=== PATIENT | female | born 1945 | race Caucasian/White ===

== ENCOUNTER 2018-10-18 09:56 | Outpatient (CLI) | payer MEDICARE, MEDICAID | END 2018-10-18 09:57 | disposition home or self-care (01) | LOC: BICMAMMO 09:56 | PROVIDERS: ATTEND Family Medicine | DX: Z12.31 Encounter for screening mammogram for malignant neoplasm of breast (principal); R92.1 Mammographic calcification found on diagnostic imaging of breast | CPT/HCPCS: 77063; 77067 ==

== ENCOUNTER 2020-10-16 08:08 | Outpatient (CLI) | payer MEDICARE, MEDICAID ==
--- NOTE | 2020-10-16 08:47 | BD ---
DEXA bone density scan: 10/16/2020 COMPARISON: 07/14/2017. HISTORY: DEXA bone density scan, postmenopausal female undergoing screening for osteoporosis. FINDINGS: Lumbar Spine: BMD (g/cm2) L1 0.990 T-Score: 0.0 L2 1.068 T-Score: 0.4 L3 1.347 T-Score: 2.4 L4 0.935 T-Score: -1.1 L1-L4 1.069 T-Score: 0.2 Previous T-scores L1: -0.8 L2: -0.6 L3: -0.8 L4: -1.2 Total: -1.0 Femoral Neck: 0.567 T-Score: -2.5 Total Femur: 0.682 T-Score: -2.1 Previous T-Scores: Femoral neck: -2.2 Total Femur: -2.0 When compared to the prior examination, bone mineral density has decreased by 2.6% within the proxima l femur and has increased by 13.8% within the lumbar spine. This increase in bone mineral density within the lumbar spine is felt to be artifical in nature, likely associated with degenerative change . The FRAX-WHO fracture risk assessment tool is not reported as some T-scores are at or below -2.5. IMPRESSION: Femoral neck osteoporosis. Bone mineral density has worsened. Transcribed Date/Time: 10/16/2020 9:15 AM
--- NOTE | 2020-10-16 16:33 | MMO ---
Bilateral MAMMO Bilat Screen [facility]. CLINICAL HISTORY: Patient is 75 years old and is seen for screening. The patient has no family history of breast cancer. The patient has no personal history of cancer. VIEWS: The views performed were: bilateral craniocaudal with tomosynthesis; bilateral mediolateral oblique with tomosynthesis; and left mediolateral oblique. FILMS COMPARED: The present examination has been compared to prior imaging studies performed at [facility] on 06/25/2016 and 10/18/2018. This study has been interpreted with the assistance of computer-aided detection. MAMMOGRAM FINDINGS: The breasts are extremely dense, which may lower the sensitivity of mammography. There are tiny new calcs in the posterior right mid breast on MLO view. In the left breast, there are no suspicious masses, calcifications or areas of architectural distortion. IMPRESSION: FINDING IN THE RIGHT BREAST REQUIRES ADDITIONAL EVALUATION. ADDITIONAL PROJECTIONS (RIGHT MEDIOLATERAL OBLIQUE SPOT COMPRESSION MAGNIFICATION; RIGHT MEDIOLATERAL; RIGHT EXAGGERATED CRANIOCAUDAL; AND RIGHT EXAGGERATED CRANIOCAUDAL SPOT COMPRESSION MAGNIFICATION) ARE RECOMMENDED. THE RESULTS OF THIS EXAM WERE SENT TO THE PATIENT. ACR BI-RADS Category 0 - Incomplete: Need additional imaging evaluation. [facility] will notify the patient of the need for additional imaging services. MAMMOGRAPHY NOTE: 1. A negative mammogram report should not delay a biopsy if a dominant of clinically suspicious mass is present. 2. Approximately 10% to 15% of breast cancers are not detected by mammography. 3. Adenosis and dense breasts may obscure an underlying neoplasm. Reported by: ERNIE BARRAZA MD Electonically Signed: [id number]
== END 2020-10-16 08:09 | disposition home or self-care (01) ==
LOC: BICMAMMO 08:08
PROVIDERS: ATTEND Family Medicine
DX: Z12.31 Encounter for screening mammogram for malignant neoplasm of breast (principal); M81.6 Localized osteoporosis [Lequesne]; R92.1 Mammographic calcification found on diagnostic imaging of breast
CPT/HCPCS: 77063; 77067; 77080

== ENCOUNTER 2020-10-30 08:22 | Outpatient (CLI) | payer MEDICARE, MEDICAID ==
--- NOTE | 2020-10-30 08:56 | MMO ---
Right Breast MAMMO Unilat Diag [facility]. CLINICAL HISTORY: Patient is 75 years old and is seen for diagnostic exam. The patient has no family history of breast cancer. The patient has no personal history of cancer. VIEWS: The views performed were: right mediolateral oblique spot compression magnification; right mediolateral spot compression magnification; right mediolateral with tomosynthesis; right exaggerated craniocaudal with tomosynthesis; and cleavage view. FILMS COMPARED: The present examination has been compared to prior imaging studies performed at [facility] on 06/25/2016, 10/18/2018 and 10/16/2020. This study has been interpreted with the assistance of computer-aided detection. MAMMOGRAM FINDINGS: The breast is extremely dense, which may lower the sensitivity of mammography. There are calcifications with grouped or clustered distribution seen in the posterior lower-outer region of the right breast. IMPRESSION: CALCIFICATIONS IN THE RIGHT BREAST ARE PROBABLY BENIGN. FOLLOW-UP IN 6 MONTHS IS RECOMMENDED. THE RESULTS OF THIS EXAM WERE SENT TO THE PATIENT. ACR BI-RADS Category 3 - Probably benign finding - short interval follow-up suggested. [facility] will notify the patient of the need for additional imaging services. MAMMOGRAPHY NOTE: 1. A negative mammogram report should not delay a biopsy if a dominant of clinically suspicious mass is present. 2. Approximately 10% to 15% of breast cancers are not detected by mammography. 3. Adenosis and dense breasts may obscure an underlying neoplasm. Reported by: HARDEEP NAILS MD Electonically Signed: [id number]
== END 2020-10-30 08:23 | disposition home or self-care (01) ==
LOC: BICMAMMO 08:22
PROVIDERS: ATTEND Family Medicine
DX: R92.2 Inconclusive mammogram (principal); R92.1 Mammographic calcification found on diagnostic imaging of breast
CPT/HCPCS: 77065; G0279

== ENCOUNTER 2021-05-01 13:41 | Outpatient (CLI) | payer MEDICARE, MEDICAID | END 2021-05-01 13:42 | disposition home or self-care (01) | LOC: BICMAMMO 13:41 | PROVIDERS: ATTEND Family Medicine | DX: R92.1 Mammographic calcification found on diagnostic imaging of breast (principal) | CPT/HCPCS: 77065; G0279 ==

== ENCOUNTER 2021-11-05 09:13 | Outpatient (CLI) | payer MEDICARE, MEDICAID | END 2021-11-05 09:14 | disposition home or self-care (01) | LOC: BICMAMMO 09:13 | PROVIDERS: ATTEND Family Medicine | DX: N63.10 Unspecified lump in the right breast, unspecified quadrant (principal); R92.8 Other abnormal and inconclusive findings on diagnostic imaging of breast | CPT/HCPCS: 77066; G0279 ==

== ENCOUNTER 2023-08-19 09:27 | Outpatient (CLI) | payer OTHER, MEDICAID | END 2023-08-19 09:28 | disposition home or self-care (01) | LOC: BICMAMMO 09:27 | PROVIDERS: ATTEND Family Medicine | DX: Z12.31 Encounter for screening mammogram for malignant neoplasm of breast (principal); Z80.3 Family history of malignant neoplasm of breast | CPT/HCPCS: 77063; 77067 ==

== ENCOUNTER 2024-09-18 09:26 | Inpatient (IN) | payer OTHER, MEDICAID ==
[2024-09-18] MEDS ORDERED: Morphine 2 MG/ML VIAL ONE ×2 (09:46→10:32)
[2024-09-18] MEDS ORDERED: Ondansetron PF 4 MG/2 ML Vial ONE (09:46)
[2024-09-18 09:47] LABS: #Basophils 0.03 10x3/uL (0.0-0.2); #Eosinophils Less than 0.03 10x3/uL (0.0-0.7); %Basophils 0.4 % (0.0-1.0); %Lymphocytes 14.9 % (21.0-51.0); %Neutrophils 77.3 % (42.0-75.0); Hemoglobin 11.2 g/dL (12.0-16.0); Mean Corpuscular HGB CONC 33.9 g/dL (32.0-36.0); Mean Corpuscular Hemoglobin 27.7 pg (27.0-31.0); Mean Corpuscular Volume 81.7 fL (78.0-98.0); Mean Platelet Volume 9.2 fL (7.4-10.4); Platelet Count 456 10x3/uL (130-400); RBC Distribution Width 13.5 % (11.5-14.5); Red Blood Cell (RBC) Count 4.04 mill/uL (4.20-5.40)
[2024-09-18 09:57] LABS: ALT (SGPT) 14 U/L (8-55); AST (SGOT) 28 U/L (5-34); Albumin 4.1 g/dL (3.4-4.8); Anion Gap 23 mmol/L (10-20); BUN (Urea Nitrogen) 32 mg/dL (9.8-20.1); Bilirubin, Total 0.8 mg/dL (0.2-1.2); Calc. Creatinine Clearance 0 mL/min (70-130); Calcium 10.4 mg/dL (7.8-10.44); Carbon Dioxide 28 mmol/L (23-31); Chloride 86 mmol/L (98-107); Estimated GFR 41; Globulin 4.3 g/dL (2.4-3.5); Glucose 149 mg/dL (83-110); Lipase 23 U/L (8-78); Protein, Total 8.4 g/dL (5.8-8.1); Sodium 134 mmol/L (136-145)
[2024-09-18 10:27] LABS: Troponin I 0.053 ng/mL (< 0.028)
[2024-09-18 11:20] LABS: Alkaline Phosphatase 102 U/L (40-110)
[2024-09-18 11:45] LABS: Bilirubin Negative (Negative); Blood, Urine Small (Negative); Glucose, Urine (Dipstick) Negative (Negative); Ketone, Urine Trace mg/dL (Negative); Leukocyte Negative (Negative); Nitrite Negative (Negative); Protein, Urine (Dipstick) 100 mg/dL (Neg-Trace); Urobilinogen 0.2 mg/dL (Less than 2)
[2024-09-18 12:01] LABS: Bacteria/HPF 1+ HPF (None Seen); CAUTI Indications for Culture Pelvic or flank pain; Squamous Epithelial 0-3 HPF (0-3)
[2024-09-18 12:02] LABS: Clarity Cloudy (Clear); Urine Culture Reflex No No
[2024-09-18] MEDS ORDERED: LORazepam 2 MG/ML SYR.(CARPUJECT) ONE (12:05)
[2024-09-18] MEDS ORDERED: Iopamidol-370 76% 500 ML MDV (1 ML CHARGE) ONE (13:16)
[2024-09-18] MEDS ORDERED: Aspirin Chewable 81 MG TAB ONE (14:05)
[2024-09-18] MEDS ORDERED: Ondansetron PF 4 MG/2 ML Vial IVP PRN (14:06)
[2024-09-18] MEDS ORDERED: Sodium Chloride 0.9% 100 ML ONE (14:06)
[2024-09-18] MEDS ORDERED: cefTRIAXone (ROCEPHIN) 1 GM VIAL ONE (14:06)
[2024-09-18] MEDS ORDERED: Dextrose 5% in Water 1,000 ML IV PRN (14:10)
[2024-09-18] MEDS ORDERED: Insulin Regular, Human 100 UNIT/ML 10 ML VIAL SC PRN (14:10)
[2024-09-18] MEDS ORDERED: Dextrose 50% Abboject 50 ML SYRINGE SLOW IVP PRN (14:10)
[2024-09-18] MEDS ORDERED: Glucagon 1 MG/ML KIT IM PRN (14:10)
[2024-09-18] MEDS ORDERED: Insulin Lispro 100 UNIT/ML 10 ML VIAL SC PRN (14:10)
[2024-09-18 15:00] LABS: Troponin I 0.059 ng/mL (< 0.028)
[2024-09-18] MEDS ORDERED: Potassium Chloride 20 MEQ (100 mL) BAG ONE (16:33)
[2024-09-18] MEDS: hydrALAZINE 20 MG/ML VIAL SLOW IVP PRN (18:01)
[2024-09-18] MEDS: Potassium Chloride 20 MEQ in Premix 1 BAG IVPB SCH (18:11)
[2024-09-18] MEDS: Sodium Chloride 0.9% 1,000 ML IV SCH (18:11)
[2024-09-18] MEDS: Morphine 2 MG/ML VIAL SLOW IVP PRN (18:48)
[2024-09-18 18:55] VITALS: BMI 30.2
[2024-09-18] MEDS: Famotidine/PF 20 mg/2ml Vial SLOW IVP SCH (20:16)
[2024-09-18] MEDS: Lorazepam 1 MG TAB PO SCH (20:16)
[2024-09-18] MEDS: Carvedilol 25 MG TAB PO SCH (20:16)
[2024-09-18] MEDS: hydrALAZINE 25 MG TAB PO SCH (20:16)
[2024-09-18] MEDS: Rosuvastatin 5 MG TAB PO SCH (20:17)
[2024-09-18] MEDS: diphenhydrAMINE 25 MG CAP PO PRN (20:17)
[2024-09-19 04:32] LABS: #Basophils 0.05 10x3/uL (0.0-0.2); #Eosinophils Less than 0.03 10x3/uL (0.0-0.7); %Basophils 0.7 % (0.0-1.0); %Eosinophils 0.1 % (0.0-10.0); %Lymphocytes 18.8 % (21.0-51.0); %Monocytes 10.1 % (0.0-10.0); Hematocrit 31.2 % (36.0-47.0); Hemoglobin 9.9 g/dL (12.0-16.0); Mean Corpuscular HGB CONC 31.7 g/dL (32.0-36.0); Mean Corpuscular Hemoglobin 27.1 pg (27.0-31.0); Mean Corpuscular Volume 85.5 fL (78.0-98.0); Mean Platelet Volume 9.9 fL (7.4-10.4); Platelet Count 404 10x3/uL (130-400); RBC Distribution Width 13.8 % (11.5-14.5); Red Blood Cell (RBC) Count 3.65 mill/uL (4.20-5.40)
[2024-09-19 05:03] LABS: ALT (SGPT) 12 U/L (8-55); AST (SGOT) 26 U/L (5-34); Albumin 3.5 g/dL (3.4-4.8); Alkaline Phosphatase 83 U/L (40-110); Anion Gap 16 mmol/L (10-20); BUN (Urea Nitrogen) 30 mg/dL (9.8-20.1); Bilirubin, Total 0.5 mg/dL (0.2-1.2); Calc. Creatinine Clearance 45 mL/min (70-130); Calcium 9.2 mg/dL (7.8-10.44); Carbon Dioxide 25 mmol/L (23-31); Chloride 96 mmol/L (98-107); Estimated GFR 50; Globulin 3.5 g/dL (2.4-3.5); Glucose 129 mg/dL (83-110); Magnesium 1.8 mg/dL (1.6-2.6); Potassium 2.9 mmol/L (3.5-5.1); Sodium 134 mmol/L (136-145)
[2024-09-19] MEDS: Aspirin 325 mg Enteric Coated Tablet PO SCH (08:13)
[2024-09-19] MEDS: Potassium Chloride 20 MEQ TAB PO SCH (08:13)
[2024-09-19] MEDS: Enoxaparin 40 MG (0.4 mL) SYRINGE SC SCH (08:13)
[2024-09-19] MEDS ORDERED: Furosemide 20 MG TAB PO SCH (09:00)
[2024-09-19] MEDS ORDERED: Lisinopril 20 MG TAB PO SCH (09:00)
[2024-09-19] MEDS: Magnesium 2 GM/50 ML(in water) 2 GM in Premix 1 BAG IVPB SCH ×2 (12:25→12:27)
[2024-09-19] MEDS: diphenhydrAMINE 50 MG/ML VIAL IVP SCH (12:26)
[2024-09-19] MEDS: cefTRIAXone\\ROCEPHIN 1 GM in Sodium Chloride 0.9% 100 ML IVPB SCH (14:45)
[2024-09-20 05:09] LABS: Iron 28 ug/dL (50-170); Iron Binding Capacity, Total 313 mcg/dL (265-497)
[2024-09-20 05:20] LABS: Ferritin 64.77 ng/mL (10-291)
[2024-09-20 05:24] LABS: HBSAB Concentration Less than 8.00 mIU/mL; HBsAg Index 0.29 S/CO (0-0.99); Hep B Core Total Ab NONREACTIVE (NonReactive); Hep B Core Total Index 0.18 S/CO (0-0.79); Hep B Surf AB NONREACTIVE (NonReactive); Hep B Surf Ag NONREACTIVE S/CO (NonReactive); Hep C IgG Ab NONREACTIVE S/CO (NonReactive); Hep C Index 0.11 S/CO (0-0.79)
[2024-09-20 08:29] VITALS: TEMP 98.5
[2024-09-20] MEDS ORDERED: FLU (Fluad Triv) TS24-25 (65UP)/MF59C/PF 45 MCG/0.5 ML Syringe IM ONE (09:00)
[2024-09-20 10:28] LABS: Anion Gap 15 mmol/L (10-20); BUN (Urea Nitrogen) 26 mg/dL (9.8-20.1); Calc. Creatinine Clearance 48 mL/min (70-130); Calcium 9.1 mg/dL (7.8-10.44); Carbon Dioxide 26 mmol/L (23-31); Chloride 103 mmol/L (98-107); Estimated GFR 54; Glucose 142 mg/dL (83-110); Potassium 3.6 mmol/L (3.5-5.1); Sodium 140 mmol/L (136-145)
[2024-09-20] MEDS: cloNIDine 0.1 MG TAB PO PRN (13:46)
[2024-09-20] MEDS: diphenhydrAMINE 50 MG/ML VIAL IVP SCH (14:56)
[2024-09-20 17:15] VITALS: BP 216/86
[2024-09-21 05:17] LABS: Hepatitis A Total ABS Negative (Negative)
[2024-09-21 12:46] LABS: EliA Vaculitis New Method **** NEW METHOD ****; Mitochondrial Ab 0.7 U/mL (<4 Negative)
[2024-09-22 08:18] LABS: Alpha-1-Antitrypsin 143 mg/dL (101-187)
[2024-09-22 12:42] LABS: Smooth Muscle Total ABS 22 Units (0-19)
== END 2024-09-20 18:39 | disposition home or self-care (01) | DRG 392 ==
LOC: SUATTDRO 09:26 → ERS 09:26 → ERHOLD 14:05 → 2NO 17:27 → OBSVTOIN 09-19 13:17
PROVIDERS: ADMIT Internal Medicine; ATTEND Internal Medicine
DX: A09 Infectious gastroenteritis and colitis, unspecified (principal); I24.89 Other forms of acute ischemic heart disease; N39.0 Urinary tract infection, site not specified; K86.2 Cyst of pancreas; K80.20 Calculus of gallbladder without cholecystitis without obstruction; E87.6 Hypokalemia; N18.30 Chronic kidney disease, stage 3 unspecified; K43.9 Ventral hernia without obstruction or gangrene; E86.0 Dehydration; E78.5 Hyperlipidemia, unspecified; E11.22 Type 2 diabetes mellitus with diabetic chronic kidney disease; I12.9 Hypertensive chronic kidney disease with stage 1 through stage 4 chronic kidney disease, or unspecified chronic kidney disease
CPT/HCPCS: 36415; 36416; 51702; 71045; 74177; 76705; 80048; 80053; 81001; 82103; 82728; 83516; 83540; 83550; 83690; 83735; 84145; 84484; 85025; 86015; 86704; 86706; 86708; 86803; 87086; 87340; 93005; 94760; 96361; 96365; 96372; 96375; 96376; G0378; J0360; J0696; J1200; J1650; J2060; J2272; J2405; J3475; J3480; J3490; J7030; Q9967

== ENCOUNTER 2024-10-17 13:50 | Inpatient (IN) | payer OTHER, MEDICAID ==
[2024-10-17 14:21] LABS: #Basophils Less than 0.03 10x3/uL (0.0-0.2); %Basophils 0.2 % (0.0-1.0); %Eosinophils 0.4 % (0.0-10.0); %Lymphocytes 10.7 % (21.0-51.0); %Monocytes 7.1 % (0.0-10.0); %Neutrophils 81.1 % (42.0-75.0); Hematocrit 36.1 % (36.0-47.0); Hemoglobin 12.1 g/dL (12.0-16.0); Mean Corpuscular HGB CONC 33.5 g/dL (32.0-36.0); Mean Corpuscular Volume 80.6 fL (78.0-98.0); Mean Platelet Volume 10.7 fL (7.4-10.4); Platelet Count 260 10x3/uL (130-400); RBC Distribution Width 14.9 % (11.5-14.5); Red Blood Cell (RBC) Count 4.48 mill/uL (4.20-5.40)
[2024-10-17 14:46] LABS: Troponin I 0.069 ng/mL (< 0.028)
[2024-10-17 14:50] LABS: ALT (SGPT) 5 U/L (8-55); AST (SGOT) 17 U/L (5-34); Albumin 3.4 g/dL (3.4-4.8); Alkaline Phosphatase 89 U/L (40-110); Anion Gap 19 mmol/L (10-20); BUN (Urea Nitrogen) 38 mg/dL (9.8-20.1); Bilirubin, Total 0.7 mg/dL (0.2-1.2); Calc. Creatinine Clearance 0 mL/min (70-130); Calcium 8.3 mg/dL (7.8-10.44); Carbon Dioxide 36 mmol/L (23-31); Chloride 76 mmol/L (98-107); Estimated GFR 18; Globulin 3.5 g/dL (2.4-3.5); Glucose 113 mg/dL (83-110); Potassium 2.6 mmol/L (3.5-5.1); Protein, Total 6.9 g/dL (5.8-8.1); Sodium 128 mmol/L (136-145)
[2024-10-17] MEDS ORDERED: HYDROcodone/Acetaminophen 5/325 mg Tablet ONE (15:09)
[2024-10-17] MEDS ORDERED: Potassium Chloride 20 MEQ (100 mL) BAG ONE (17:40)
[2024-10-17 19:55] VITALS: BMI 24.7
[2024-10-17] MEDS ORDERED: Acetaminophen 325 MG TAB PO PRN ×2 (20:00→22:29)
[2024-10-17] MEDS ORDERED: Ondansetron PF 4 MG/2 ML Vial IVP PRN ×2 (20:00→22:29)
[2024-10-17] MEDS ORDERED: Ondansetron ODT 4 MG TAB SL PRN (20:00)
[2024-10-17] MEDS: Morphine 2 MG/ML VIAL SLOW IVP PRN (20:21)
[2024-10-17] MEDS ORDERED: Acetaminophen 650 MG Suppository PR PRN (22:29)
[2024-10-17] MEDS ORDERED: Senokot S 8.6-50 MG TAB PO PRN (22:29)
[2024-10-17] MEDS ORDERED: Dextrose 50% Abboject 50 ML SYRINGE SLOW IVP PRN (22:29)
[2024-10-17] MEDS ORDERED: Dextrose 5% in Water 1,000 ML IV PRN (22:29)
[2024-10-17] MEDS ORDERED: Ondansetron ODT 4 MG TAB PO PRN (22:29)
[2024-10-17] MEDS ORDERED: Calcium Carbonate 500 MG ChewTAB PO PRN (22:29)
[2024-10-17] MEDS ORDERED: Glucagon 1 MG/ML KIT IM PRN (22:29)
[2024-10-18 00:20] LABS: Magnesium 0.9 mg/dL (1.6-2.6)
[2024-10-18] MEDS: Magnesium Sulfate In Water 4 GM in Premix 1 BAG IVPB SCH (01:06)
[2024-10-18] MEDS: Potassium Chloride 20 MEQ TAB PO SCH (01:06)
[2024-10-18] MEDS: NS 0.9% w/ 20 MEQ KCL 1,000 ML/1,000 ML BAG IV SCH (01:07)
[2024-10-18] MEDS: HYDROcodone/Acetaminophen 7.5/325 mg Tablet PO PRN (01:14)
[2024-10-18 04:49] LABS: #Basophils Less than 0.03 10x3/uL (0.0-0.2); #Eosinophils Less than 0.03 10x3/uL (0.0-0.7); %Basophils 0.3 % (0.0-1.0); %Eosinophils 0.3 % (0.0-10.0); %Lymphocytes 15.5 % (21.0-51.0); %Monocytes 5.3 % (0.0-10.0); %Neutrophils 78.3 % (42.0-75.0); Hematocrit 35.8 % (36.0-47.0); Hemoglobin 11.7 g/dL (12.0-16.0); Mean Corpuscular HGB CONC 32.7 g/dL (32.0-36.0); Mean Corpuscular Hemoglobin 27.6 pg (27.0-31.0); Mean Corpuscular Volume 84.4 fL (78.0-98.0); Mean Platelet Volume 10.1 fL (7.4-10.4); Platelet Count 269 10x3/uL (130-400); Red Blood Cell (RBC) Count 4.24 mill/uL (4.20-5.40)
[2024-10-18 05:18] LABS: ALT (SGPT) 6 U/L (8-55); AST (SGOT) 16 U/L (5-34); Albumin 3.2 g/dL (3.4-4.8); Alkaline Phosphatase 92 U/L (40-110); Anion Gap 22 mmol/L (10-20); BUN (Urea Nitrogen) 35 mg/dL (9.8-20.1); Bilirubin, Total 0.5 mg/dL (0.2-1.2); Calc. Creatinine Clearance 20 mL/min (70-130); Calcium 8.4 mg/dL (7.8-10.44); Carbon Dioxide 31 mmol/L (23-31); Chloride 84 mmol/L (98-107); Estimated GFR 24; Globulin 3.6 g/dL (2.4-3.5); Glucose 88 mg/dL (83-110); Magnesium 2.6 mg/dL (1.6-2.6); Protein, Total 6.8 g/dL (5.8-8.1); Sodium 133 mmol/L (136-145)
[2024-10-18] MEDS: Gabapentin 300 MG CAP PO SCH (10:11)
[2024-10-18] MEDS: Pantoprazole DR 40 MG TAB PO SCH (10:11)
[2024-10-18] MEDS: Aspirin 325 mg Enteric Coated Tablet PO SCH (10:11)
[2024-10-18] MEDS: Sodium Chloride 0.9% 1,000 ML IV SCH (11:31)
[2024-10-18] MEDS: Insulin Lispro 100 UNIT/ML 10 ML VIAL SC PRN ×2 (18:44→22:30)
[2024-10-19 05:48] LABS: Anion Gap 17 mmol/L (10-20); BUN (Urea Nitrogen) 32 mg/dL (9.8-20.1); Calc. Creatinine Clearance 26 mL/min (70-130); Calcium 8.1 mg/dL (7.8-10.44); Carbon Dioxide 32 mmol/L (23-31); Chloride 89 mmol/L (98-107); Estimated GFR 32; Glucose 156 mg/dL (83-110); Potassium 3.6 mmol/L (3.5-5.1); Sodium 134 mmol/L (136-145)
[2024-10-19] MEDS: Saxagliptin 2.5 MG TAB PO SCH (11:56)
[2024-10-19] MEDS: Alogliptin 25 MG TAB PO SCH (12:17)
[2024-10-19] MEDS: glipiZIDE 5 MG TAB PO SCH (20:17)
[2024-10-19] MEDS: Atorvastatin Calcium 10 MG TAB PO SCH (20:17)
[2024-10-19] MEDS: Carvedilol 25 MG TAB PO SCH (20:18)
[2024-10-20 04:54] LABS: Hematocrit 30.7 % (36.0-47.0); Hemoglobin 10.1 g/dL (12.0-16.0); Mean Corpuscular HGB CONC 32.9 g/dL (32.0-36.0); Mean Corpuscular Hemoglobin 28.1 pg (27.0-31.0); Mean Corpuscular Volume 85.5 fL (78.0-98.0); Mean Platelet Volume 10.3 fL (7.4-10.4); Platelet Count 228 10x3/uL (130-400); Red Blood Cell (RBC) Count 3.59 mill/uL (4.20-5.40)
[2024-10-20 05:13] LABS: Anion Gap 11 mmol/L (10-20); BUN (Urea Nitrogen) 24 mg/dL (9.8-20.1); Calc. Creatinine Clearance 39 mL/min (70-130); Calcium 8.1 mg/dL (7.8-10.44); Carbon Dioxide 32 mmol/L (23-31); Chloride 93 mmol/L (98-107); Estimated GFR 53; Glucose 202 mg/dL (83-110); Magnesium 1.7 mg/dL (1.6-2.6); Potassium 3.4 mmol/L (3.5-5.1); Sodium 133 mmol/L (136-145)
[2024-10-20] MEDS: Saxagliptin 2.5 MG TAB PO SCH (09:45)
[2024-10-20] MEDS: Potassium Chloride 20 MEQ TAB PO SCH (09:46)
[2024-10-20] MEDS: metFORMIN 500 MG TAB PO SCH (20:37)
[2024-10-21 04:07] LABS: Hematocrit 30.7 % (36.0-47.0); Hemoglobin 9.8 g/dL (12.0-16.0); Mean Corpuscular HGB CONC 31.9 g/dL (32.0-36.0); Mean Corpuscular Hemoglobin 27.6 pg (27.0-31.0); Mean Corpuscular Volume 86.5 fL (78.0-98.0); Mean Platelet Volume 10.4 fL (7.4-10.4); Platelet Count 222 10x3/uL (130-400); RBC Distribution Width 14.8 % (11.5-14.5); Red Blood Cell (RBC) Count 3.55 mill/uL (4.20-5.40)
[2024-10-21 04:44] LABS: Anion Gap 14 mmol/L (10-20); BUN (Urea Nitrogen) 20 mg/dL (9.8-20.1); Calc. Creatinine Clearance 43 mL/min (70-130); Calcium 8.5 mg/dL (7.8-10.44); Carbon Dioxide 28 mmol/L (23-31); Chloride 95 mmol/L (98-107); Estimated GFR 58; Glucose 197 mg/dL (83-110); Magnesium 1.6 mg/dL (1.6-2.6); Potassium 3.7 mmol/L (3.5-5.1); Sodium 133 mmol/L (136-145)
[2024-10-21] MEDS: Pioglitazone HCl 15 MG TAB PO SCH (10:02)
[2024-10-21] MEDS: hydrALAZINE 25 MG TAB PO SCH (15:37)
[2024-10-21] MEDS: hydrALAZINE 20 MG/ML VIAL SLOW IVP PRN (17:06)
[2024-10-21] MEDS: metFORMIN 500 MG TAB PO SCH (17:11)
[2024-10-21] MEDS: FLU (Fluad Triv) TS24-25 (65UP)/MF59C/PF 45 MCG/0.5 ML Syringe IM ONE (21:04)
[2024-10-22] MEDS: Furosemide 40 MG TAB PO SCH (08:19)
[2024-10-22] MEDS ORDERED: Zolpidem Tartrate 5 MG TAB PO PRN (09:20)
[2024-10-23 04:47] LABS: #Basophils Less than 0.03 10x3/uL (0.0-0.2); %Basophils 0.5 % (0.0-1.0); %Eosinophils 4.1 % (0.0-10.0); %Lymphocytes 29.8 % (21.0-51.0); %Monocytes 6.6 % (0.0-10.0); Hematocrit 31.8 % (36.0-47.0); Hemoglobin 10.3 g/dL (12.0-16.0); Mean Corpuscular HGB CONC 32.4 g/dL (32.0-36.0); Mean Corpuscular Hemoglobin 27.5 pg (27.0-31.0); Mean Platelet Volume 10.6 fL (7.4-10.4); Platelet Count 247 10x3/uL (130-400); RBC Distribution Width 14.9 % (11.5-14.5); Red Blood Cell (RBC) Count 3.74 mill/uL (4.20-5.40)
[2024-10-23 04:51] LABS: Anion Gap 15 mmol/L (10-20); BUN (Urea Nitrogen) 23 mg/dL (9.8-20.1); Calc. Creatinine Clearance 40 mL/min (70-130); Calcium 9.4 mg/dL (7.8-10.44); Carbon Dioxide 30 mmol/L (23-31); Chloride 94 mmol/L (98-107); Estimated GFR 49; Glucose 117 mg/dL (83-110); Potassium 3.8 mmol/L (3.5-5.1); Sodium 135 mmol/L (136-145)
[2024-10-23 17:13] VITALS: BP 147/65; TEMP 97.2
== END 2024-10-23 18:49 | disposition home health service (06) | DRG 184 ==
LOC: ERS 13:50 → ERHOLD 18:11 → 2NO 19:34
PROVIDERS: ADMIT Family Medicine; ATTEND Internal Medicine
DX: S22.43XA Multiple fractures of ribs, bilateral, initial encounter for closed fracture (principal); E87.1 Hypo-osmolality and hyponatremia; N17.9 Acute kidney failure, unspecified; E87.6 Hypokalemia; E11.22 Type 2 diabetes mellitus with diabetic chronic kidney disease; I12.9 Hypertensive chronic kidney disease with stage 1 through stage 4 chronic kidney disease, or unspecified chronic kidney disease; Z95.0 Presence of cardiac pacemaker; Z88.5 Allergy status to narcotic agent; Z86.73 Personal history of transient ischemic attack (TIA), and cerebral infarction without residual deficits; I25.10 Atherosclerotic heart disease of native coronary artery without angina pectoris; D64.9 Anemia, unspecified; E78.5 Hyperlipidemia, unspecified; N18.30 Chronic kidney disease, stage 3 unspecified; R53.81 Other malaise; X58.XXXA Exposure to other specified factors, initial encounter
CPT/HCPCS: 36415; 36416; 70450; 71250; 80048; 80053; 83735; 84484; 85025; 85027; 93005; 93306; 94760; 96374; J0360; J1815; J2272; J3475; J3480; J7030

== ENCOUNTER 2025-06-25 15:07 | Inpatient (IN) | payer OTHER, MEDICAID ==
[2025-06-25 16:27] LABS: #Basophils Less than 0.03 10x3/uL (0.0-0.2); #Eosinophils 0.07 10x3/uL (0.0-0.7); #Monocytes 0.28 10x3/uL (0.11-0.59); #Neutrophils 3.45 10x3/uL (1.40-6.50); %Basophils 0.4 % (0.0-1.0); %Eosinophils 1.5 % (0.0-10.0); %Lymphocytes 15.9 % (21.0-51.0); %Monocytes 6.1 % (0.0-10.0); %Neutrophils 75.4 % (42.0-75.0); Hematocrit 31.7 % (36.0-47.0); Hemoglobin 10.6 g/dL (12.0-16.0); Mean Corpuscular Hemoglobin 26.8 pg (27.0-31.0); Mean Corpuscular Volume 80.3 fL (78.0-98.0); Platelet Count 232 10x3/uL (130-400); Red Blood Cell (RBC) Count 3.95 mill/uL (4.20-5.40); White Blood Cell (WBC) Count 4.58 10x3/uL (4.8-10.8)
[2025-06-25 16:45] LABS: Troponin I 0.053 ng/mL (< 0.028)
[2025-06-25 16:51] LABS: ALT (SGPT) 11 U/L (Less than 34); AST (SGOT) 27 U/L (11-34); Albumin 3.6 g/dL (3.1-4.5); Alkaline Phosphatase 79 U/L (40-110); Anion Gap 19 mmol/L (10-20); BUN (Urea Nitrogen) 49 mg/dL (9.8-20.1); Bilirubin, Total 0.4 mg/dL (0.3-1.2); CK (CPK) 100 U/L (29-168); Calc. Creatinine Clearance 0 mL/min (70-130); Calcium 9.5 mg/dL (7.8-10.44); Carbon Dioxide 34 mmol/L (23-31); Chloride 75 mmol/L (98-107); Globulin 3.8 g/dL (2.4-3.5); Glucose 155 mg/dL (83-110); Potassium 2.5 mmol/L (3.5-5.1); Sodium 125 mmol/L (136-145)
[2025-06-25 17:45] LABS: Magnesium 1.3 mg/dL (1.6-2.6)
[2025-06-25] MEDS ORDERED: Magnesium 2 GM/50 ML BAG (IN WATER) ONE (17:53)
[2025-06-25] MEDS ORDERED: Boostrix 0.5 ML (Tdap) VIAL (>/=7 yrs of age) ONE (17:53)
[2025-06-25] MEDS ORDERED: NS 0.9% w/ 20 MEQ KCL 0 ML ONE (17:53)
[2025-06-25] MEDS ORDERED: NS 0.9% w/ 40 MEQ KCL 1,000 ML IV SCH (18:30)
[2025-06-25] MEDS ORDERED: Ondansetron PF 4 MG/2 ML Vial IVP PRN (18:38)
[2025-06-25 21:27] VITALS: BMI 22.1
[2025-06-25] MEDS: Acetaminophen 325 MG TAB PO PRN (22:58)
[2025-06-25] MEDS: Potassium Chloride 20 MEQ in Premix 1 BAG IVPB SCH (22:59)
[2025-06-25] MEDS: levETIRAcetam 500 MG TAB PO SCH (23:50)
[2025-06-26 00:10] LABS: Sodium 125 mmol/L (136-145)
[2025-06-26 00:22] LABS: Troponin I 0.056 ng/mL (< 0.028)
[2025-06-26] MEDS: Magnesium 2 GM/50 ML(in water) 2 GM in Premix 1 BAG IVPB SCH (02:55)
[2025-06-26] MEDS: Prochlorperazine 10 MG/2 ML VIAL SLOW IVP SCH (02:55)
[2025-06-26] MEDS: diphenhydrAMINE 50 MG/ML VIAL IVP SCH (02:55)
[2025-06-26 04:13] LABS: #Basophils Less than 0.03 10x3/uL (0.0-0.2); #Eosinophils 0.04 10x3/uL (0.0-0.7); #Monocytes 0.35 10x3/uL (0.11-0.59); #Neutrophils 3.57 10x3/uL (1.40-6.50); %Basophils 0.4 % (0.0-1.0); %Eosinophils 0.8 % (0.0-10.0); %Lymphocytes 19.5 % (21.0-51.0); %Monocytes 7.0 % (0.0-10.0); %Neutrophils 71.9 % (42.0-75.0); Hematocrit 27.5 % (36.0-47.0); Hemoglobin 9.1 g/dL (12.0-16.0); Mean Corpuscular Hemoglobin 26.8 pg (27.0-31.0); Mean Corpuscular Volume 80.9 fL (78.0-98.0); Platelet Count 208 10x3/uL (130-400); Red Blood Cell (RBC) Count 3.40 mill/uL (4.20-5.40); White Blood Cell (WBC) Count 4.97 10x3/uL (4.8-10.8)
[2025-06-26 04:36] LABS: Anion Gap 16 mmol/L (10-20); BUN (Urea Nitrogen) 47 mg/dL (9.8-20.1); Calc. Creatinine Clearance 24 mL/min (70-130); Calcium 8.7 mg/dL (7.8-10.44); Carbon Dioxide 32 mmol/L (23-31); Chloride 82 mmol/L (98-107); Glucose 150 mg/dL (83-110); Potassium 3.6 mmol/L (3.5-5.1); Sodium 126 mmol/L (136-145)
[2025-06-26 04:39] LABS: Troponin I 0.052 ng/mL (< 0.028)
[2025-06-26] MEDS ORDERED: Electrolyte Replacement Protocol 1 EACH FS ONE (08:25)
[2025-06-26 08:45] LABS: Magnesium 2.4 mg/dL (1.6-2.6)
[2025-06-26] MEDS: levETIRAcetam 500 mg/5 ml Oral Solution PO SCH (10:16)
[2025-06-26 13:52] VITALS: BMI 22.1
[2025-06-26 14:43] LABS: Sodium 130 mmol/L (136-145)
[2025-06-26] MEDS: levETIRAcetam 500 MG TAB PO SCH (22:59)
[2025-06-26] MEDS: Gabapentin 300 MG CAP PO SCH (22:59)
[2025-06-26] MEDS: Heparin 5,000 UNITS/ML VIAL SC SCH (23:00)
[2025-06-27] MEDS: Prochlorperazine 10 MG/2 ML VIAL SLOW IVP SCH (01:00)
[2025-06-27] MEDS: Ketorolac Tromethamine 30 MG (1 mL) VIAL IVP SCH (01:17)
[2025-06-27] MEDS: diphenhydrAMINE 50 MG/ML VIAL IVP SCH (02:47)
[2025-06-27 05:27] LABS: #Basophils Less than 0.03 10x3/uL (0.0-0.2); #Eosinophils 0.10 10x3/uL (0.0-0.7); #Monocytes 0.29 10x3/uL (0.11-0.59); #Neutrophils 3.38 10x3/uL (1.40-6.50); %Basophils 0.4 % (0.0-1.0); %Eosinophils 2.0 % (0.0-10.0); %Lymphocytes 22.2 % (21.0-51.0); %Monocytes 5.9 % (0.0-10.0); %Neutrophils 69.1 % (42.0-75.0); Hematocrit 28.8 % (36.0-47.0); Hemoglobin 9.3 g/dL (12.0-16.0); Mean Corpuscular Hemoglobin 26.9 pg (27.0-31.0); Mean Corpuscular Volume 83.2 fL (78.0-98.0); Platelet Count 207 10x3/uL (130-400); Red Blood Cell (RBC) Count 3.46 mill/uL (4.20-5.40); White Blood Cell (WBC) Count 4.90 10x3/uL (4.8-10.8)
[2025-06-27 05:50] LABS: Anion Gap 13 mmol/L (10-20); BUN (Urea Nitrogen) 37 mg/dL (9.8-20.1); Calc. Creatinine Clearance 26 mL/min (70-130); Calcium 8.7 mg/dL (7.8-10.44); Carbon Dioxide 30 mmol/L (23-31); Chloride 94 mmol/L (98-107); Glucose 118 mg/dL (83-110); Magnesium 2.2 mg/dL (1.6-2.6); Potassium 3.1 mmol/L (3.5-5.1); Sodium 134 mmol/L (136-145)
[2025-06-27] MEDS: Pantoprazole 40 MG DR.TAB PO SCH (09:16)
[2025-06-28 05:27] LABS: Anion Gap 13 mmol/L (10-20); BUN (Urea Nitrogen) 26 mg/dL (9.8-20.1); Calc. Creatinine Clearance 34 mL/min (70-130); Calcium 8.4 mg/dL (7.8-10.44); Carbon Dioxide 28 mmol/L (23-31); Chloride 97 mmol/L (98-107); Glucose 215 mg/dL (83-110); Potassium 3.7 mmol/L (3.5-5.1); Sodium 134 mmol/L (136-145)
[2025-06-28] MEDS: Potassium Phosphate 30 MMOL in Sodium Chloride 0.9% 250 ML 250 ML IVPB SCH (09:37)
[2025-06-29 04:04] LABS: #Basophils Less than 0.03 10x3/uL (0.0-0.2); #Eosinophils 0.13 10x3/uL (0.0-0.7); #Monocytes 0.30 10x3/uL (0.11-0.59); #Neutrophils 2.97 10x3/uL (1.40-6.50); %Basophils 0.2 % (0.0-1.0); %Eosinophils 2.8 % (0.0-10.0); %Lymphocytes 26.2 % (21.0-51.0); %Monocytes 6.5 % (0.0-10.0); %Neutrophils 63.9 % (42.0-75.0); Hematocrit 27.6 % (36.0-47.0); Hemoglobin 9.0 g/dL (12.0-16.0); Mean Corpuscular Hemoglobin 27.4 pg (27.0-31.0); Mean Corpuscular Volume 84.1 fL (78.0-98.0); Platelet Count 223 10x3/uL (130-400); Red Blood Cell (RBC) Count 3.28 mill/uL (4.20-5.40); White Blood Cell (WBC) Count 4.65 10x3/uL (4.8-10.8)
[2025-06-29 04:20] LABS: Anion Gap 13 mmol/L (10-20); BUN (Urea Nitrogen) 18 mg/dL (9.8-20.1); Calc. Creatinine Clearance 40 mL/min (70-130); Calcium 8.5 mg/dL (7.8-10.44); Carbon Dioxide 27 mmol/L (23-31); Chloride 99 mmol/L (98-107); Glucose 146 mg/dL (83-110); Potassium 3.6 mmol/L (3.5-5.1); Sodium 135 mmol/L (136-145)
[2025-06-29] MEDS: Carvedilol 6.25 MG TAB PO SCH (11:07)
[2025-06-29 12:51] VITALS: TEMP 98.1
[2025-06-29 18:27] VITALS: BP 137/62
== END 2025-06-29 19:04 | disposition home health service (06) | DRG 312 ==
LOC: ERS 15:07 → PCU 17:55
PROVIDERS: ADMIT Internal Medicine; ATTEND Internal Medicine
DX: I95.1 Orthostatic hypotension (principal); E87.1 Hypo-osmolality and hyponatremia; N17.9 Acute kidney failure, unspecified; N18.30 Chronic kidney disease, stage 3 unspecified; I12.9 Hypertensive chronic kidney disease with stage 1 through stage 4 chronic kidney disease, or unspecified chronic kidney disease; E11.22 Type 2 diabetes mellitus with diabetic chronic kidney disease; S09.8XXA Other specified injuries of head, initial encounter; G40.909 Epilepsy, unspecified, not intractable, without status epilepticus; Z88.8 Allergy status to other drugs, medicaments and biological substances; Z79.899 Other long term (current) drug therapy; Z79.4 Long term (current) use of insulin; S22.39XD Fracture of one rib, unspecified side, subsequent encounter for fracture with routine healing; W19.XXXA Unspecified fall, initial encounter
CPT/HCPCS: 12002; 36415; 70450; 71045; 72125; 72170; 80048; 80053; 82550; 83735; 84100; 84484; 85025; 90471; 90715; 93005; 94760; 96365; 96367; 96375; J0780; J1200; J1644; J1885; J2270; J3010; J3475; J3480; J7030; J7050